=== PATIENT | male | born 1935 | race Caucasian/White ===

== ENCOUNTER 2017-08-22 06:43 | Day surgery (SDC) | payer OTHER ==
[~2017-08-22] VITALS: Ht 182.9 cm; Wt 99.2 kg
[2017-08-22] MEDS ORDERED: ASPI-496 PO (07:36)
[2017-08-22] MEDS ORDERED: RIVA20TA PO (07:36)
[2017-08-22] MEDS ORDERED: UMEC62.5 INH (07:36)
[2017-08-22] MEDS ORDERED: HYDR12.58 PO (07:36)
[2017-08-22] MEDS ORDERED: BUDE10.2 INH (07:36)
[2017-08-22] MEDS ORDERED: VIT1TABL34 PO (07:36)
[2017-08-22] MEDS ORDERED: GLUC1CAP13 PO (07:36)
[2017-08-22] MEDS ORDERED: PANT40TA5 PO (07:36)
[2017-08-22] MEDS ORDERED: MULT-658 PO (07:36)
[2017-08-22] MEDS ORDERED: SOLI10TA2 PO (07:36)
[2017-08-22] MEDS ORDERED: MELA10TA PO (07:36)
[2017-08-22] MEDS ORDERED: LOSA25TA5 PO (07:36)
[2017-08-22] MEDS ORDERED: ATOR40TA PO (07:36)
[2017-08-22 07:46] VITALS: BP 123/68
[2017-08-22] MEDS ORDERED: LIDOCAINE-MPF 2% ,5ML ONE (07:56)
[2017-08-22] MEDS ORDERED: PROPOFOL 10 MG/ML, 20ML ONE (07:56)
[2017-08-22] MEDS ORDERED: LACTATED RINGERS 1,000 ML IV SCH (08:00)
[2017-08-22 08:05] LABS: ASPARTATE AMINO TRANSFERASE 19 U/L (15-37); BLOOD UREA NITROGEN 22 mg/dL (7-18)
== END 2017-08-22 09:30 ==
LOC: OUT 06:43 → EDBD 09:00 → OUT 09:30
PROVIDERS: ATTEND Internal Medicine
DX: K55.20 Angiodysplasia of colon without hemorrhage (principal); K26.9 Duodenal ulcer, unspecified as acute or chronic, without hemorrhage or perforation; J44.9 Chronic obstructive pulmonary disease, unspecified; I10 Essential (primary) hypertension; E78.5 Hyperlipidemia, unspecified; Z85.46 Personal history of malignant neoplasm of prostate; Z87.39 Personal history of other diseases of the musculoskeletal system and connective tissue; Z85.51 Personal history of malignant neoplasm of bladder; Z98.890 Other specified postprocedural states; Z99.81 Dependence on supplemental oxygen
CPT/HCPCS: 36415; 43255; 80053; 93005; J2704; J3490; J7120

== ENCOUNTER 2017-11-30 10:02 | Day surgery (SDC) | payer OTHER ==
[~2017-11-30] VITALS: Ht 182.9 cm; Wt 101.7 kg
[~2017-11-30 10:02] MED LIST: ASPI-496 PO; ATOR40TA PO; BUDE10.2 INH; GLUC1CAP13 PO; HYDR12.58 PO; LOSA25TA5 PO; MELA10TA PO; MULT-658 PO; PANT40TA5 PO; RIVA20TA PO; SOLI10TA2 PO; UMEC62.5 INH; VIT1TABL34 PO
[2017-11-30 10:41] VITALS: BP 142/92
[2017-11-30] MEDS ORDERED: LACTATED RINGERS 1,000 ML IV SCH (10:47)
[2017-11-30] MEDS ORDERED: METO50TA6 PO (10:52)
[2017-11-30] MEDS ORDERED: FENTANYL PF 100 MCG/2ML ONE (11:45)
[2017-11-30] MEDS ORDERED: MIDAZOLAM 1 MG/ML, 2ML ONE (11:45)
[2017-11-30] MEDS ORDERED: PROMETHAZINE 12.5 MG SUPP PR PRN ×2 (12:00→12:30)
[2017-11-30] MEDS ORDERED: OXYcodone 5 MG/5 ML ORAL.SOL UDC PO PRN ×2 (12:00→12:30)
[2017-11-30] MEDS ORDERED: hydrALAzine 20 MG/ML, 1ML IV PRN ×2 (12:00→12:30)
[2017-11-30] MEDS ORDERED: MEPERIDINE/PF 25MG/0.5ML IVPush PRN ×2 (12:00→12:30)
[2017-11-30] MEDS ORDERED: HYDROmorphone 1 MG/ML, 1ML IV PRN (12:00)
[2017-11-30] MEDS ORDERED: LABETALOL 5MG/ML, 20ML IV PRN ×2 (12:00→12:30)
[2017-11-30] MEDS ORDERED: ONDANSETRON 2MG/ML, 2ML IVPush PRN (12:00)
[2017-11-30] MEDS ORDERED: FENTANYL PF 100 MCG/2ML IV PRN ×2 (12:00→12:30)
[2017-11-30] MEDS ORDERED: ALBUTEROL SULFATE 2.5 MG/3 ML NPPB PRN ×2 (12:00→12:30)
[2017-11-30] MEDS ORDERED: ACETAMINOPHEN 325 MG TABLET PO PRN ×2 (12:00→12:30)
[2017-11-30] MEDS ORDERED: PHENYLEPHRINE 10 MG/ML ONE (12:13)
[2017-11-30] MEDS ORDERED: DEXAMETHASONE 4 MG/ML, 1ML ONE (12:13)
[2017-11-30] MEDS ORDERED: PROPOFOL 10 MG/ML, 20ML ONE (12:13)
[2017-11-30] MEDS ORDERED: KETAMINE 10 MG/ML, 20ML ONE (12:13)
[2017-11-30] MEDS ORDERED: ONDANSETRON 2MG/ML, 2ML ONE (12:13)
[2017-11-30] MEDS ORDERED: PROMETHAZINE 25 MG/ML, 1ML IV PRN (12:30)
[2017-11-30] MEDS ORDERED: morphine SULFATE 10 MG/ML, 1ML IV PRN (12:30)
== END 2017-11-30 14:42 ==
LOC: OUT 10:02
PROVIDERS: ATTEND Internal Medicine Geriatric Medicine
DX: K31.819 Angiodysplasia of stomach and duodenum without bleeding (principal); I10 Essential (primary) hypertension; E78.5 Hyperlipidemia, unspecified; J44.9 Chronic obstructive pulmonary disease, unspecified
CPT/HCPCS: 43239; 88305; 93005; J1100; J2250; J2370; J2405; J2704; J3010; J7120

== ENCOUNTER → 2018-01-18 | Outpatient (CLI) | payer OTHER ==
[~2018-01-18] MED LIST changes: +METO50TA6 PO; +METOPROLOL 1 MG/ML, 5ML ONE; +OMNIPAQUE 350 MG/ML, 150 ML BOTTLE ONE
== END ==
LOC: CVU 10:36
PROVIDERS: ATTEND Internal Medicine Cardiovascular Disease
DX: Z01.818 Encounter for other preprocedural examination (principal); I65.23 Occlusion and stenosis of bilateral carotid arteries; I25.10 Atherosclerotic heart disease of native coronary artery without angina pectoris; J43.2 Centrilobular emphysema; N28.1 Cyst of kidney, acquired; M51.36 Other intervertebral disc degeneration, lumbar region; M47.896 Other spondylosis, lumbar region; M41.86 Other forms of scoliosis, lumbar region; I10 Essential (primary) hypertension
CPT/HCPCS: 71275; 74174; 93306; 93880; Q9967

== ENCOUNTER 2018-02-07 06:15 | Inpatient (IN) | payer OTHER ==
[~2018-02-07] VITALS: Ht 180.3 cm; Wt 104.5 kg
[~2018-02-07 06:15] MED LIST changes: -METOPROLOL 1 MG/ML, 5ML ONE; -OMNIPAQUE 350 MG/ML, 150 ML BOTTLE ONE
[2018-02-07] MEDS ORDERED: SODIUM CHLORIDE 0.9% 1,000 ML IV ONE (06:23)
[2018-02-07] MEDS ORDERED: ONDANSETRON 2MG/ML, 2ML IVPush PRN (06:30)
[2018-02-07] MEDS ORDERED: CHLORHEXIDINE 15 ML BOTTLE MM PRN (06:30)
[2018-02-07] MEDS ORDERED: HEPARIN 1,000 UNITS/ML, 10ML ONE ×2 (06:33→07:12)
[2018-02-07 06:43] VITALS: BP 150/87
[2018-02-07] MEDS ORDERED: FENTANYL PF 250 MCG/5ML ONE (06:47)
[2018-02-07] MEDS ORDERED: ASPI-621 PO (07:05)
[2018-02-07] MEDS ORDERED: HYDR12.53 PO (07:05)
[2018-02-07] MEDS ORDERED: PROTAMINE SULFATE 10 MG/ML, 5ML ONE (07:11)
[2018-02-07] MEDS ORDERED: CEFAZOLIN 1,000 MG ONE ×2 (07:12→16:00)
[2018-02-07] MEDS ORDERED: LIDOCAINE/PF 1%, 30ML ONE (07:12)
[2018-02-07 07:19] LABS: ALBUMIN 3.3 g/dL (3.4-5.0); ANION GAP 3 mmol/L (5-15); CALCIUM 8.5 mg/dL (8.5-10.1); CHLORIDE 108 mmol/L (98-107)
[2018-02-07 07:22] LABS: ALANINE AMINOTRANSFERASE 24 U/L (12-78); ALKALINE PHOSPHATASE 66 U/L (45-117); BILIRUBIN,TOTAL 0.8 mg/dL (0.2-1.0); CREATININE 0.77 mg/dL (0.7-1.3); TOTAL PROTEIN 7.1 g/dL (6.4-8.2)
[2018-02-07 07:32] LABS: MEAN CORPUSCULAR HEMOGLOBIN 22.8 pg (27.5-34.5); MEAN CORPUSCULAR HGB CONC 31.4 g/dL (33.2-36.2); MEAN CORPUSCULAR VOLUME 72.6 fL (81-97); MEAN PLATELET VOLUME 9.5 fL (7.4-10.4); PLATELET COUNT 193 x10^3/uL (130-400); RED BLOOD COUNT 5.11 x10^6/uL (4.38-5.82); RED CELL DISTRIBUTION WIDTH 21.8 % (9.4-14.8)
[2018-02-07 07:47] LABS: INTERNATIONAL NORMALIZED RATIO 0.96 (0.93-1.1)
[2018-02-07 08:25] LABS: MD MORPH REVIEW ONLY
[2018-02-07 08:26] LABS: BASOPHILS # (AUTO) 0.06 x10^3/uL (0-0.1); BASOPHILS % (AUTO) 1 % (0-1); EOSINOPHILS # (AUTO) 0.14 x10^3/uL (0-0.4); EOSINOPHILS % (AUTO) 2 % (1-7); HYPOCHROMIA 1+; LYMPHOCYTES # (AUTO) 1.42 x10^3/uL (1-3.4); LYMPHOCYTES % (AUTO) 25 % (22-44); MONOCYTES # (AUTO) 0.66 x10^3/uL (0.2-0.8); MONOCYTES % (AUTO) 12 % (2-9); NEUTROPHILS # (AUTO) 3.47 x10^3/uL (1.8-6.8); NEUTROPHILS % (AUTO) 60 % (42-75)
[2018-02-07 08:27] LABS: OVALOCYTES 1+
[2018-02-07 08:28] LABS: <PLATELET ESTIMATE> ADEQUATE; ANISOCYTOSIS 2+; GIANT PLATELETS 1+; LARGE PLATELETS 1+; MICROCYTOSIS 2+; POLYCHROMASIA 1+
[2018-02-07] MEDS ORDERED: LOSARTAN 25MG TABLET PO SCH ×2 (09:30→21:00)
[2018-02-07] MEDS: HYDROCHLOROTHIAZIDE 12.5 MG CAPSULE PO SCH (09:30)
[2018-02-07] MEDS ORDERED: ASPIRIN 81 MG TABLET EC PO SCH (09:30)
[2018-02-07] MEDS ORDERED: MULTIVITAMIN 1 TABLET PO SCH ×2 (09:30→21:00)
[2018-02-07] MEDS ORDERED: GLUCAGON 1 MG IM PRN (09:30)
[2018-02-07] MEDS ORDERED: DEXTROSE 50%, 50ML SYRINGE IVPush PRN (09:30)
[2018-02-07] MEDS ORDERED: DEXTROSE 4 GM TAB.CHEW PO PRN (09:30)
[2018-02-07] MEDS ORDERED: SODIUM CHLORIDE 0.9% 1,000 ML IV SCH (10:00)
[2018-02-07] MEDS ORDERED: ROCURONIUM 10 MG/ML,10ML ONE (16:00)
[2018-02-07] MEDS ORDERED: DEXAMETHASONE 4 MG/ML, 1ML ONE (16:00)
[2018-02-07] MEDS ORDERED: PROPOFOL 10 MG/ML, 20ML ONE (16:00)
[2018-02-07] MEDS ORDERED: SUCCINYLCHOLINE 20 MG/ML, 10ML ONE (16:00)
[2018-02-07 20:17] VITALS: BP 126/71
[2018-02-07] MEDS: SODIUM CHLORIDE FLUSH 10ML SYR IVF SCH (20:21)
[2018-02-07] MEDS ORDERED: MELATONIN 5 MG TABLET PO SCH (21:00)
[2018-02-07] MEDS ORDERED: CLOPIDOGREL 300 MG TABLET PO ONE (21:00)
[2018-02-07] MEDS ORDERED: ATORVASTATIN 40 MG TABLET PO SCH (21:00)
[2018-02-08 02:27] VITALS: BP 105/61
[2018-02-08 05:40] LABS: BASOPHILS # (AUTO) 0.02 x10^3/uL (0-0.1); BASOPHILS % (AUTO) 0 % (0-1); EOSINOPHILS # (AUTO) 0.02 x10^3/uL (0-0.4); EOSINOPHILS % (AUTO) 0 % (1-7); LYMPHOCYTES # (AUTO) 1.19 x10^3/uL (1-3.4); LYMPHOCYTES % (AUTO) 14 % (22-44); MD NO; MEAN CORPUSCULAR HEMOGLOBIN 22.6 pg (27.5-34.5); MEAN CORPUSCULAR HGB CONC 31.6 g/dL (33.2-36.2); MEAN CORPUSCULAR VOLUME 71.6 fL (81-97); MEAN PLATELET VOLUME 9.2 fL (7.4-10.4); MONOCYTES # (AUTO) 1.01 x10^3/uL (0.2-0.8); MONOCYTES % (AUTO) 12 % (2-9); NEUTROPHILS # (AUTO) 6.24 x10^3/uL (1.8-6.8); NEUTROPHILS % (AUTO) 74 % (42-75); PLATELET COUNT 151 x10^3/uL (130-400); RED BLOOD COUNT 4.28 x10^6/uL (4.38-5.82); RED CELL DISTRIBUTION WIDTH 21.3 % (9.4-14.8)
[2018-02-08 05:47] LABS: CHLORIDE 107 mmol/L (98-107)
[2018-02-08 05:51] LABS: ALBUMIN 2.9 g/dL (3.4-5.0); ANION GAP 6 mmol/L (5-15); CREATININE 0.74 mg/dL (0.7-1.3)
[2018-02-08 07:17] VITALS: BP 114/62
[2018-02-08] MEDS ORDERED: CLOP75TA PO (08:14)
[2018-02-08] MEDS ORDERED: CLOPIDOGREL 75 MG TABLET PO SCH ×3 (09:00→21:00)
[2018-02-08] MEDS ORDERED: ASPIRIN 81 MG TABLET EC PO SCH ×3 (09:00→21:00)
[2018-02-08] MEDS: FLUTICASONE/VILANTEROL 200-25MCG/INH INH SCH ×2 (09:00→09:27)
[2018-02-08] MEDS: HYDROCHLOROTHIAZIDE 12.5 MG CAPSULE PO SCH (09:26)
[2018-02-08] MEDS: SODIUM CHLORIDE FLUSH 10ML SYR IVF SCH (09:27)
[2018-02-08 12:30] VITALS: BP 114/69
== END 2018-02-08 14:26 | disposition home or self-care (01) | DRG 266 ==
LOC: ORIP 06:15 → CCU 09:54 → 5SO 17:50
PROVIDERS: ADMIT Internal Medicine Cardiovascular Disease; ATTEND Internal Medicine Cardiovascular Disease
PROC: B246ZZ4 Ultrasonography of Right and Left Heart, Transesophageal (ICD-10-PCS; 2018-02-07)
PROC: 02RF38Z Replacement of Aortic Valve with Zooplastic Tissue, Percutaneous Approach (ICD-10-PCS; principal; 2018-02-07 08:00)
DX: I35.0 Nonrheumatic aortic (valve) stenosis (principal); Z00.6 Encounter for examination for normal comparison and control in clinical research program; I50.33 Acute on chronic diastolic (congestive) heart failure; J96.11 Chronic respiratory failure with hypoxia; I45.10 Unspecified right bundle-branch block; J44.9 Chronic obstructive pulmonary disease, unspecified; I10 Essential (primary) hypertension; E78.5 Hyperlipidemia, unspecified; Z79.82 Long term (current) use of aspirin; Z79.899 Other long term (current) drug therapy
CPT/HCPCS: 33361; 36415; 80048; 80053; 82040; 85025; 85347; 85610; 85730; 86850; 86900; 86923; 87081; 93005; 93308; 93312; 93321; 93325; 93355; C1760; C1769; C1894; J0690; J1100; J1644; J2704; J2720; J3010; J3490; J0330; J7030; Q9967

== ENCOUNTER 2018-02-21 08:45 | Observation (INO) | payer OTHER ==
[~2018-02-21] VITALS: Ht 180.3 cm; Wt 102.9 kg
[~2018-02-21 08:45] MED LIST changes: +ASPI-621 PO; +CLOP75TA PO; +HYDR12.53 PO
[2018-02-21] MEDS: SODIUM CHLORIDE 0.9% 1,000 ML IV SCH ×3 (09:16→21:26)
[2018-02-21 09:18] VITALS: BP 128/54
[2018-02-21] MEDS ORDERED: FENTANYL PF 100 MCG/2ML ONE (10:18)
[2018-02-21] MEDS ORDERED: LIDOCAINE/PF 1%, 30ML ONE (10:18)
[2018-02-21] MEDS ORDERED: MIDAZOLAM 1 MG/ML, 5ML ONE (10:18)
[2018-02-21] MEDS ORDERED: CEFAZOLIN PMX 1GM/50ML 50 ML ONE (10:18)
[2018-02-21] MEDS ORDERED: CEFAZOLIN 1,000 MG ONE (10:19)
[2018-02-21] MEDS ORDERED: ACETAMINOPHEN 325 MG TABLET PO PRN (12:00)
[2018-02-21 12:58] VITALS: BP 137/79
[2018-02-21] MEDS: CEFAZOLIN PMX 1GM/50ML 50 ML IVPB SCH (17:58)
[2018-02-21 20:01] VITALS: BP 123/72
[2018-02-21] MEDS ORDERED: ATORVASTATIN 40 MG TABLET PO SCH (21:00)
[2018-02-21] MEDS ORDERED: MELATONIN 5 MG TABLET PO SCH (21:00)
[2018-02-21] MEDS: SODIUM CHLORIDE FLUSH 10ML SYR IVF SCH (21:25)
[2018-02-22 01:33] VITALS: BP 128/65
[2018-02-22] MEDS: CEFAZOLIN PMX 1GM/50ML 50 ML IVPB SCH (02:32)
[2018-02-22 06:50] VITALS: BP 113/67
[2018-02-22] MEDS ORDERED: ACET325T14 PO (08:19)
[2018-02-22] MEDS: SODIUM CHLORIDE 0.9% 1,000 ML IV SCH (08:25)
[2018-02-22] MEDS: SODIUM CHLORIDE FLUSH 10ML SYR IVF SCH (08:26)
[2018-02-22] MEDS ORDERED: LOSARTAN 25MG TABLET PO SCH (09:00)
[2018-02-22] MEDS ORDERED: ASPIRIN 81 MG TABLET EC PO SCH (09:00)
[2018-02-22] MEDS ORDERED: CLOPIDOGREL 75 MG TABLET PO SCH (09:00)
[2018-02-22] MEDS ORDERED: MULTIVITAMIN 1 TABLET PO SCH (09:00)
== END 2018-02-22 11:35 | disposition home or self-care (01) ==
LOC: CACL 08:45 → ORIP 11:32 → 5SO 11:57 → DCLOUNGE 02-22 11:20
PROVIDERS: ADMIT Internal Medicine Cardiovascular Disease; ATTEND Internal Medicine Cardiovascular Disease
DX: I49.5 Sick sinus syndrome (principal); I48.0 Paroxysmal atrial fibrillation; I35.0 Nonrheumatic aortic (valve) stenosis; J96.11 Chronic respiratory failure with hypoxia; I50.32 Chronic diastolic (congestive) heart failure; I11.0 Hypertensive heart disease with heart failure
CPT/HCPCS: 33208; 71045; 96365; 96375; 99156; 99157; C1779; C1785; C1892; G0378; J0690; J2250; J3010; J3490